=== PATIENT | female | born 1975 | race Caucasian/White ===

== ENCOUNTER 2023-12-24 14:12 | Emergency (ER) | payer OTHER, MEDICAID ==
[~2023-12-24] VITALS: Ht 165.1 cm; Wt 63.5 kg
[2023-12-24 15:30] LABS: PREGNANCY TEST URINE QUAL NEGATIVE (NEGATIVE)
[2023-12-24] MEDS ORDERED: LIDOCAINE 5% (PATCH) 1 EA PATCH TP ONE (16:55)
[2023-12-24] MEDS ORDERED: KETOROLAC TROMETHAMINE INJ 30 MG/ML VIAL ONE (16:55)
[2023-12-24] MEDS ORDERED: oxyCODONE/APAP (5/325 MG) 1 UDTAB TABLET ONE (16:55)
[2023-12-24] MEDS ORDERED: dexAMETHasone 1 MG TABLET ONE (16:56)
[2023-12-24] MEDS: KETOROLAC TROMETHAMINE INJ 30 MG/ML VIAL IM ONE (16:57)
[2023-12-24] MEDS: oxyCODONE/APAP (5/325 MG) 1 UDTAB TABLET PO ONE (16:58)
[2023-12-24] MEDS: dexAMETHasone 1 MG TABLET PO ONE (16:58)
[2023-12-24] MEDS: LIDOCAINE 5% (PATCH) 1 EA PATCH TP ONE (16:58)
[2023-12-24 19:30] VITALS: BP 128/72; TEMP 98; O2SAT 98
== END 2023-12-24 19:31 | disposition home or self-care (01) ==
LOC: ER 14:57
DX: M54.59 Other low back pain (principal)
CPT/HCPCS: 99285; 72131; 96372; 84703; J1885; J8540